=== PATIENT | male | born 1990 | race Caucasian/White ===

== ENCOUNTER 2016-11-06 13:00 | Emergency (ER) | payer SELFPAY ==
[2016-11-06 13:22] VITALS: BP 129/74; BMI 31.9
--- NOTE | 2016-11-06 15:24 | DR.GENAD ---
HPI - PCP Primary Care Physician: MCKENNA - HPI Comment HPI Comment: PATIENT FEELS WEAK, DRAINED OF ENERGY AND IS RUNNING FEVER. COUGH IS PRODUCTIVE. NO DYSURIA. - Complaint/Symptoms Chief Complaint Doctors Comments: FEVER, COUGH, BODYACHES TIMES ONE DAY. Chief Complaint:: BODY ACHES AND COUGHING UP DURING THE MIDDLE OF THE NIGHT,. FEVER 101 Self Treatment fo Chief Complaint: NOTHING - Nurses notes reviewed Nurses Notes Review: Yes - Source History Provided: Patient - Mode of Arrival Mode of Arrival: Ambulatory - Timing Onset of Chief Complaint: 11/06/16 Came on: Suddenly - Duration Duration: Constant Duration: Days - Severity Severity: Moderate PMH - PMH Past Medical History: Yes Past Medical History: Anxiety Past Surgical History: Yes Past Surgical History Comment: TONSIL - Family History History of Family Medical Conditions: Yes Family Medical History: Diabetes Mellitus, Cancer - Social History Type of Tobacco Use: None Alcohol Use: Occasionally Do you use any recreational Drugs:: No Lives With: Family Lives Where: Home - infectious screening In the last 2 months have you had wt loss of >10#?: NO Have you had fever, night sweats or hemotysis?: No Have you traveled outside the country in the last 6 months?: No Isolation: Standard ROS - Review of Systems Constitutional: Chills, Fever, Weakness, Fatigue Eyes: No Symptoms Reported. negative: Eye Pain, Discharge ENTM: Nose Discharge, Nose Congestion. negative: Ear Pain, Throat Pain Respiratoy: Productive Cough, Wheezing. negative: Short of Breath, Hemoptysis Cardiovascular: Chest Pain. negative: Edema, Palpitations, Syncope Gastrointestinal/Abdominal: No Symptoms Reported. negative: Abdominal Pain, Diarrhea, Nausea, Vomiting Genitourinary: No Symptoms Reported. negative: Dysuria, Frequency, Hematuria Neurological: Headache, Weakness, Dizziness Musculoskeletal: Muscle Pain Integumentary: No Symptoms Reported Hematologic/Lymphatic: No Symptoms Reported Endocrine: No Symptoms Reported All Other Systems: Reviewed and Negative PE - Vital Signs Vitals: Temperature 99.6 F Pulse Rate 113 Respiratory Rate 18 Blood Pressure 129/74 O2 Sat by Pulse Oximetry 99 - General Limitations: No Limitations General Appearance: Alert - Head Head Exam: Normal Inspection - Eyes Eye exam: Normal Appearance - ENT ENT Exam: Normal External Ear Exam External Ear Exam: Normal External Inspection TM/Canal Exam: Bilateral Normal Nose Exam: Normal Nose Exam Mouth Exam: Normal Inspection Throat Exam: Normal Inspection - Neck Neck Exam: Trachea Midline. negative: Tenderness, Meningismus, Lymphadenopathy - Chest Chest Inspection: Symmetric Chest Wall Rise - Respiratory Respiratory Exam: negative: Chest Wall Tenderness, Respiratory Distress Respiratory Exam: Bilateral Rhonchi, Left Rales, Upper Rhonchi, Lower Rales, Lower Rhonchi - Cardiovascular Cardiovascular Exam: Regular Rate, Normal Rhythm, Normal Heart Sounds - Abdominal Exam Abdominal Exam: Normal Bowel Sounds, Soft. negative: Tenderness - Extremities Extremities Exam: Normal Inspection - Back Back Exam: Normal Inspection - Neurologic Neurological Exam: Alert, Oriented X3 - Psychiatric Psychiatric Exam: Anxious - Skin Skin Exam: Normal Color MDM - Differential Diagnosis Differential Diagnosis: PNEUMONIA, BRONCHITIS, FLU Course - Treatment Treatment: SEE ORDERS - Education/Counseling Education/Counseling: Patient, Education Educated On: Diagnosis, Needs for Follow Up ROR - Labs Reviewed Laboratory Results Reviewed?: Yes Result Diagrams: 11/06/16 15:30 11/06/16 15:30 Laboratory: WBC 10.0 X10^3/uL (3.6-10.0) 11/06/16 15:30 RBC 4.66 X10^6/uL (4.7-6.0) L 11/06/16 15:30 Hgb 14.1 g/dL (13.5-18.0) 11/06/16 15:30 Hct 41.0 % (42.0-54.0) L 11/06/16 15:30 MCV 88.0 fL (80.0-100.0) 11/06/16 15:30 MCH 30.3 pg (27.0-34.0) 11/06/16 15:30 MCHC 34.4 g/dL (33.0-35.0) 11/06/16 15:30 RDW 12.7 % (11.6-16.5) 11/06/16 15:30 Plt Count 154 X10^3/uL (150.0-450.0) 11/06/16 15:30 MPV 9.3 fL (7.4-11.0) 11/06/16 15:30 Neut % 85.7 % (42.0-75.0) H 11/06/16 15:30 Lymph % 7.3 % (21.0-51.0) L 11/06/16 15:30 [place] % 6.4 % (0.0-13.0) 11/06/16 15:30 Eos % 0.2 % (0.9-2.9) L 11/06/16 15:30 Baso % 0.4 % (0.2-1.0) 11/06/16 15:30 Neut # 8.5 x10^3/uL (2.2-4.8) H 11/06/16 15:30 Lymph # 0.7 X10^3/uL (1.3-2.9) L 11/06/16 15:30 [place] # 0.6 x10^3/uL (0.3-0.8) 11/06/16 15:30 Eos # 0.0 x10^3/uL (0.0-0.2) 11/06/16 15:30 Baso # 0.0 X10^3/uL (0.0-0.1) 11/06/16 15:30 Absolute Nucleated RBC 0.0 /100WBC 11/06/16 15:30 Sodium 139 mmol/L (136-145) 11/06/16 15:30 Corrected Sodium 139 mmol/L (136-145) 11/06/16 15:30 Potassium 4.4 mmol/L (3.5-5.1) 11/06/16 15:30 Chloride 102 mmol/L (98-107) 11/06/16 15:30 Carbon Dioxide 30.0 mmol/L (21-32) 11/06/16 15:30 BUN 13 mg/dL (7-18) 11/06/16 15:30 Creatinine 1.26 mg/dL (0.70-1.30) 11/06/16 15:30 Est GFR (MDRD) Af Amer > 60 (>60) 11/06/16 15:30 Est GFR (MDRD) Non-Af > 60 (>60) 11/06/16 15:30 Glucose 116 mg/dL (65-99) H 11/06/16 15:30 Calcium 8.8 mg/dL (8.5-10.1) 11/06/16 15:30 Corrected Calcium TNP 11/06/16 15:30 Total Bilirubin 0.90 mg/dL (0.2-1.0) 11/06/16 15:30 AST 35 Units/L (15-37) 11/06/16 15:30 ALT 34 Units/L (12-78) 11/06/16 15:30 Alkaline Phosphatase 70 Units/L (46-116) 11/06/16 15:30 Total Protein 7.2 g/dL (6.4-8.2) 11/06/16 15:30 Albumin 4.3 g/dL (3.4-5.0) 11/06/16 15:30 Globulin 2.9 g/dL (2.5-4.5) 11/06/16 15:30 Albumin/Globulin Ratio 1.5 Ratio (1.1-2.1) 11/06/16 15:30 - XRAY XRAY Interpreted by: Radiologist XRAY Findings: REPORT DISCUSS WITH PATIENT. - Diagnosis Discharge Problem: Pneumonia Qualifiers: Pneumonia type: due to unspecified organism Laterality: left Lung location: lower lobe of lung Qualified Code(s): J18.1 - Lobar pneumonia, unspecified organism - Discharge Plan Disposition: HOME, SELF-CARE Condition: Stable Prescriptions: Acetaminophen/Codeine Tab [TYLENOL w/CODEINE #3 (300 MG/30 MG) *] 1 tab PO Q4- 6H PRN #12 tab PRN Reason: Pain Azithromycin [Zithromax Z-Francisco 5-day] 1 dose PO DAILY #6 tab - Follow ups/Referrals Follow ups/Referrals: CONCEPCION ANDRES [Primary Care Provider] - 3 days - Instructions Instructions: Community-Acquired Pneumonia, Adult, [id number] Additional Instructions: RETURN TO ED IF WORSE.
[2016-11-06 15:41] LABS: BASOPHILS % (AUTO) 0.4 % (0.2-1.0); EOSINOPHILS % (AUTO) 0.2 % (0.9-2.9); HEMOGLOBIN 14.1 g/dL (13.5-18.0); LYMPHOCYTES # (AUTO) 0.7 X10^3/uL (1.3-2.9); LYMPHOCYTES % (AUTO) 7.3 % (21.0-51.0); MEAN CORPUSCULAR HEMOGLOBIN 30.3 pg (27.0-34.0); MEAN CORPUSCULAR HGB CONC 34.4 g/dL (33.0-35.0); MEAN PLATELET VOLUME 9.3 fL (7.4-11.0); MONOCYTES # (AUTO) 0.6 x10^3/uL (0.3-0.8); MONOCYTES % (AUTO) 6.4 % (0.0-13.0); NEUTROPHILS # (AUTO) 8.5 x10^3/uL (2.2-4.8); NEUTROPHILS % (AUTO) 85.7 % (42.0-75.0); PLATELET COUNT 154 X10^3/uL (150.0-450.0); RED BLOOD COUNT 4.66 X10^6/uL (4.7-6.0); RED CELL DISTRIBUTION WIDTH 12.7 % (11.6-16.5)
--- NOTE | 2016-11-06 15:44 | RAD ---
HISTORY: Pleuritic chest pain Study: Single-view chest Comparison: None Findings: The trachea is midline. The cardiac silhouette is unremarkable. There is ill-defined reticular int erstitial opacity in the left lower lung concerning for bronchopneumonia and for which clinical and radiographic follow up to clearing are recommended. There is no effusion or pneumothorax. The bony thorax is grossly unremarkable. IMPRESSION: Probable left lower lung bronchopneumonia for which clinical and radiographic follow up to clearing are recommended. Reported By:
[2016-11-06 15:52] LABS: ALANINE AMINOTRANSFERASE 34 Units/L (12-78); ALBUMIN 4.3 g/dL (3.4-5.0); ALKALINE PHOSPHATASE 70 Units/L (46-116); ASPARTATE AMINO TRANSFERASE 35 Units/L (15-37); BLOOD UREA NITROGEN 13 mg/dL (7-18); CALCIUM 8.8 mg/dL (8.5-10.1); CHLORIDE 102 mmol/L (98-107); COR NA(FOR HYPERGLY) 139 mmol/L (136-145); CREATININE 1.26 mg/dL (0.70-1.30); GLUCOSE 116 mg/dL (65-99); SODIUM 139 mmol/L (136-145); TOTAL PROTEIN 7.2 g/dL (6.4-8.2); eGFR BLACK RACES > 60 (>60); eGFR NON BLACK RACES > 60 (>60)
== END 2016-11-06 16:59 | disposition home or self-care (01) ==
LOC: ER 13:32
DX: J18.1 Lobar pneumonia, unspecified organism (principal)
CPT/HCPCS: 36415; 71010; 80053; 85025; 99282; 99283